=== PATIENT | female | born 1965 | race Caucasian/White ===

== ENCOUNTER → 2017-05-25 | Outpatient (CLI) | payer BC ==
[~2017-05-25] MED LIST: CETITAB27 PO; CLC100 PO; FLNIN NAE; FURO-85 PO; WARF6TAB5 PO
--- NOTE | 2017-05-25 15:20 | MAMMOGRAPHY REPORT ---
BILATERAL DIGITAL SCREENING MAMMOGRAM TOMOSYNTHESIS WITH CAD: 05/25/2017 CLINICAL HISTORY: Routine screening. Patient has no complaints. TECHNIQUE: Breast tomosynthesis in addition to standard 2D mammography was performed. Current study was also evaluated with a Computer Aided Detection (CAD) system. COMPARISON: Comparison is made to exams dated: 05/21/2016 mammogram, 05/14/2015 mammogram, 05/08/2014 mammogram, 05/05/2013 mammogram, 04/28/2011 mammogram, and 04/22/2010 mammogram - [facility]. BREAST COMPOSITION: There are scattered areas of fibroglandular density in both breasts. FINDINGS: There is a newly visualized 7 mm focal asymmetry in the approximate 9:00 to 10:00 posterio r left breast with suggested tiny internal areas of lucency on the tomosynthesis images. Although th is could represent benign fat necrosis, additional targeted ultrasound and possible additional mammog raphic views are recommended. No other suspicious mass, architectural distortion or cluster of microcalcifications is seen bilatera lly. IMPRESSION: ACR BI-RADS CATEGORY 0: INCOMPLETE EVALUATION: NEED ADDITIONAL IMAGING EVALUATION The newly visualized 7 mm focal asymmetry in the posterior left breast needs additional evaluation. The patient will be called to schedule an appointment. Approximately 10% of breast cancers are not detected with mammography. A negative mammographic report should not delay biopsy if a clinically suggestive mass is present. Gely Lobo M.D. ay/:05/25/2017 12:39:40 Clinical Partner: Regla Gonzales, [facility] letter sent: Addl Imaging 0 BI-RADS Code: ACR BI-RADS Category 0: Incomplete Evaluation: Need Additional Imaging Evaluation
== END | disposition home or self-care (01) ==
LOC: C.MAMM 08:14
PROVIDERS: ATTEND Family Medicine
DX: Z12.31 Encounter for screening mammogram for malignant neoplasm of breast (principal); N64.9 Disorder of breast, unspecified

== ENCOUNTER → 2017-09-06 | Outpatient (CLI) | payer OTHER ==
--- NOTE | 2017-09-06 15:52 | MAMMOGRAPHY REPORT ---
UNILATERAL LEFT DIGITAL DIAGNOSTIC MAMMOGRAM TOMOSYNTHESIS WITH CAD: 09/06/2017 CLINICAL HISTORY: Short interval follow-up of left breast asymmetry. TECHNIQUE: Breast tomosynthesis in addition to standard 2D mammography was performed. Current study was also evaluated with a Computer Aided Detection (CAD) system. Left CC and MLO 2-D and tomosynthes is images were obtained. COMPARISON: Comparison is made to exams dated: 06/08/2017 ultrasound, 06/08/2017 mammogram, 05/25/20 17 mammogram, 05/21/2016 mammogram, 05/14/2015 mammogram, and 05/08/2014 mammogram - [facility]. BREAST COMPOSITION: The tissue of the left breast is almost entirely fatty. FINDINGS: The previously described focal asymmetry within the left upper inner quadrant posteriorly i s no longer evident, and is therefore benign and likely represents resolved fat necrosis. The remain timothy of the left breast is stable compared to prior exams, without suspicious masses, calcifications, or areas of architectural distortion. IMPRESSION: ACR BI-RADS CATEGORY 2: BENIGN The left breast asymmetry is no longer evident, and is therefore benign and compatible with fat necro sis. There is no mammographic evidence of malignancy in the left breast. Return to annual mammogram screening schedule is recommended, due May 2018. The patient has been verbally notified of the r esults. Approximately 10% of breast cancers are not detected with mammography. A negative mammographic report should not delay biopsy if a clinically suggestive mass is present. Janice Marques M.D. /:09/06/2017 09:44:22 Outside Sales Executive: Frances HEREDIA(R)(M), [facility] letter sent: Normal 1/2 BI-RADS Code: ACR BI-RADS Category 2: Benign
== END | disposition home or self-care (01) ==
LOC: C.MAMM 08:57
PROVIDERS: ATTEND Family Medicine
DX: R92.8 Other abnormal and inconclusive findings on diagnostic imaging of breast (principal)

== ENCOUNTER → 2017-11-09 | Outpatient (CLI) | payer OTHER | END | disposition home or self-care (01) | LOC: C.MAMM 10:11 | PROVIDERS: ATTEND Family Medicine | DX: M81.0 Age-related osteoporosis without current pathological fracture (principal) ==